=== PATIENT | female | born 1930 | race Caucasian/White ===

== ENCOUNTER 2018-07-04 21:58 | Inpatient (IN) | payer OTHER ==
--- NOTE | 2018-07-04 21:59 | PDOC ---
History of Present Illness - General Stated Complaint: ABNORMAL LABS Time Seen by Provider: 07/04/18 21:59 - History of Present Illness Initial Comments: 87 year old female with PMH of HTn, HLD, IDDM, and afib (on Xarelto) presenting from [facility] because of a urine reported to have aMDR bacteria in it. She denies any symptoms except for her chronic arthritis and specifically denies urinary symptoms, nausea, vomiting, diarrhea, cough, chest pain, or other symptoms. Of note she was in [facility] one week prior for a few weeks where she was admitted for a gallstone pancreatitis and was intubated x2. She eventually recovered after intensive care treatment. She currently is doing well at rehab. 07/04/18 22:26 Past History - Past Medical History Allergies/Adverse Reactions: Allergies Allergy/AdvReac Type Severity Reaction Status Date / Time No Known Allergies Allergy Verified 07/04/18 23:50 Review of Systems - Review of Systems Constitutional: No: Chills, Diaphoresis, Fever HEENTM: No: Eye Pain, Blurred Vision, Tearing Respiratory: No: Cough, Orthopnea, Shortness of Breath Cardiac (ROS): No: Chest Pain, Edema, Irregular Heart Rate ABD/GI: No: Constipated, Diarrhea, Nausea, Vomiting : No: Burning, Dysuria, Discharge Musculoskeletal: Yes: Back Pain, Joint Pain, Joint Stiffness. No: Gout Integumentary: No: Bruising, Change in Color, Erythema, Flushing Neurological: No: Headache, Numbness, Paresthesia Hematologic/Lymphatic: No: Anemia, Blood Clots *Physical Exam - Physical Exam General Appearance: Yes: Nourished, Appropriately Dressed. No: Apparent Distress HEENT: positive: EOMI, MINERVA, Normal ENT Inspection, Normal Voice Neck: positive: Trachea midline, Normal Thyroid, Supple. negative: Tender, Rigid Respiratory/Chest: positive: Lungs Clear, Normal Breath Sounds. negative: Chest Tender, Respiratory Distress, Accessory Muscle Use Cardiovascular: positive: Irregularly Irregular. negative: Tachycardia Gastrointestinal/Abdominal: positive: Normal Bowel Sounds, Flat, Soft. negative : Tender Lymphatic: negative: Adenopathy, Tenderness Musculoskeletal: positive: Normal Inspection. negative: Decreased Range of Motion Extremity: positive: Normal Capillary Refill, Tender (right hip with stiffness and sliht limitation with movement of hte right hip and knee). negative: Normal Inspection, Normal Range of Motion Integumentary: positive: Normal Color, Dry, Warm Neurologic: positive: Fully Oriented, Alert, Normal Mood/Affect, Normal Response , Motor Strength 07/21 ED Treatment Course - LABORATORY CBC & Chemistry Diagram: 07/04/18 22:45 07/04/18 22:45 Medical Decision Making - Medical Decision Making 87 year old female from [facility] presenting with MDR Klebsiella in her urine. Completely asymptomatic but given comorbidities, the admitting service would like to bring her in for cautious IV abx management. Called in by Dr. Aguirre for admission. UA, UC, Blood cultures al pending and other labs WNL. Given Amikacin and admitted to medicine service. 07/04/18 23:52 *DC/Admit/Observation/Transfer Diagnosis at time of Disposition: UTI due to Klebsiella species - Discharge Dispostion Decision to Admit order: Yes - Referrals - Patient Instructions - Post Discharge Activity
[2018-07-04 22:14] VITALS: BMI 29.6
[2018-07-04 22:50] LABS: BASO % 0.9 % (0-2.0); EOS % 4.6 % (0-4.5); HEMATOCRIT 34.2 % (32.4-45.2); HEMOGLOBIN 11.5 GM/dL (10.7-15.3); LYMPH % 35.4 % (8-40); MCH 31.4 pg (25.7-33.7); MCHC 33.7 g/dl (32.0-36.0); MEAN CELL VOLUME 93.3 fl (80-96); MEAN PLT VOLUME 8.5 fl (7.5-11.1); MONO % 9.6 % (3.8-10.2); NEUT % 49.5 % (42.8-82.8); PLATELET COUNT 169 K/MM3 (134-434); RBC 3.66 M/mm3 (3.60-5.2); RDW 15.9 % (11.6-15.6); WHITE BLOOD COUNT 4.9 K/mm3 (4.0-10.0)
--- NOTE | 2018-07-04 23:18 | PDOC ---
Documentation entered by Shelly Romero SCRIBE, acting as scribe for Shani Damon DO. Shani Damon DO: This documentation has been prepared by the Heather wolfe Daisy, SCRIBE, under my direction and personally reviewed by me in its entirety. I confirm that the documentation accurately reflects all work, treatment, procedures, and medical decision making performed by me. Attending Attestation - Resident Resident Name: Elvira Macdonaldkieransimran - ED Attending Attestation I have performed the following: I have examined & evaluated the patient, The case was reviewed & discussed with the resident, I agree w/resident's findings & plan - HPI HPI: 07/04/18 22:46 The patient is a 87 year old female who presents to the emergency department sent in from [facility] for IV antibiotics for multidrug-resistant (MDR ) Klebsiella pneumonia in the urine. Patient was recently discharged from [facility] by the end of May for gallstone pancreatitis. She is currently asymptomatic. She is DNR/DNI. The patient denies chest pain, shortness of breath, headache and dizziness. Denies fever, chills, nausea, vomit, diarrhea and constipation. Denies dysuria, frequency, urgency and hematuria. Allergies: Penicillins Past surgical history: None reported. Social history: No reported alcohol, drug or cigarette use. - Physicial Exam PE: 07/04/18 22:57 ADULT PHYSICAL EXAM Constitutional: Awake, alert, oriented. No acute distress. Cardiovascular: Regular rate. (+) Irregular rhythm. S1, S2 regular. Distal pulses are 2+ and symmetric. Pulmonary/Chest: No evidence of respiratory distress. Clear to auscultation bilaterally No wheezing, rales or rhonchi. Abdominal: Soft and non-distended. There is no tenderness. No rebound, guarding or rigidity. No organomegaly. No palpable masses. Good bowel sounds. Musculoskeletal: (+) 1+ pitting edema to the lower extremities bilaterally. (+) chronic right leg pain 2/2 arthritis. Full range of motion in all extremities. Nocalf tenderness. Radial/pedal pulses are intact and 2+ bilaterally Skin: Skin is warm and dry. No petechiae. No purpura. Neurological: Alert and oriented to person, place, and time. Cranial nerves II -XII are grossly intact. Normal speech. Strength is grossly symmetric. No sensory deficits. Psychiatric: Good eye contact. Normal interaction, affect and behavior. - Medical Decision Making 07/04/18 23:15 a/p: 87yo female sent by Dr. Aguirre and Dr. Gordon for iv abx for mdr kleb pneumo uti -pt with pcn allergy -in [facility] for gallstone pancreatitis in May, d/c to [facility] after the admission for rehab -pt denies all symptoms -denies n/v/d. no abd pain. no dysuria -no fevers -no cp/sob -urine culture from [facility] kleb pneumo, discussed with Dr. Aguirre who requests 1 dose of amikacin in the ED -repeat ua and culture -pt is nontoxic in appearance 07/04/18 23:28 cxr shows cardiomegaly no elevated wbc 07/04/18 23:50 labs reviewed case discussed with Dr. Monroy who accepts pt to service for iv abx Heart Score/ECG Review - ECG Intrepretation Comment:: 07/04/18 23:23 afib at 87, nl axis, t wave inveresions v2-[address]ressions v4-5, no prior ekg, abnl ekg
[2018-07-04 23:31] LABS: ALBUMIN 3.1 g/dl (3.4-5.0); ALK PHOS 167 U/L (45-117); ANION GAP 7 MMOL/L (8-16); BILIRUBIN,TOTAL 0.6 mg/dL (0.2-1); BLOOD UREA NITROGEN 18 mg/dL (7-18); CALCIUM 8.5 mg/dL (8.5-10.1); CHLORIDE 106 mmol/L (98-107); CO2 25 mmol/L (21-32); CREATININE 1.2 mg/dL (0.55-1.3); GLUCOSE,RANDOM 152 mg/dL (74-106); POTASSIUM 4.3 mmol/L (3.5-5.1); SGOT/AST 24 U/L (15-37); SGPT/ALT 21 U/L (13-61); SODIUM 138 mmol/L (136-145); TOT PROT 6.4 g/dl (6.4-8.2)
[2018-07-04] MEDS ORDERED: SODIUM CHLORIDE IVPB ONE (23:45)
[2018-07-04] MEDS ORDERED: AMIKACIN SO4 IVPB ONE (23:45)
--- NOTE | 2018-07-05 | PN ---
Teaching Attending Note Name of Resident: Fredy Sosa ATTENDING PHYSICIAN STATEMENT I saw and evaluated the patient. I reviewed the resident's note and discussed the case with the resident. I agree with the resident's findings and plan as documented. SUBJECTIVE: Seen and examined; please refer to resident note for further historical information. Sent in from [facility] for MDR K. Pneumo in her urine. Patient of Dr. Aguirre who requested a dose of amikacin which will be given in ER ; patient in PNC allergic. She is afebrile and hemodynamically stable. She is at [facility] due to an episode of gallstone pancreatitis. 10 sys ROS done and negative aside from HPI PMH, PSH, FH, SH reviewed Med rec pending OBJECTIVE: VS, labs, imaging reviewed NAD, AAO, resting comfortably in bed NC AT EOMI PERRLA RRR s1/2 no mgr Lungs CTAB, w/ sym exp NT ND +BS Normal mood, appropriate behavior Labs/micro/paperwork from [facility] reviewed ASSESSMENT AND PLAN: Patient presents at the behest of their OP physician for MDR K. pneumo in her urine; she is stable. 1) MDR K. pneumo UTI -Given amikacin in ER per ID; defer further abx to their service. Appreciate expert opinion -Consult Dr. Aguirre. -Monitor CBC. Check ESR, CRP. *HTN, HLD, IDDM, Afib on Eliquis, recently hospitalized at [facility] for gallstone pancreatitis requiring intubation -Continue home meds with no changes; nonacute presentation.
--- NOTE | 2018-07-05 00:53 | HP ---
CHIEF COMPLAINT: urinary frequency PCP: Dr. Gordon HISTORY OF PRESENT ILLNESS: Patient is an 87 y/o F w/ PMHx HTN, HLD, IDDM, Afib on Eliquis, recently hospitalized at [facility] for gallstone pancreatitis requiring intubation x 2 and ICU admission, since recovered and discharged to [facility], c/o urinary frequency x 1-2 days. Outpt UCx grew MDR K pneumo and Enterobacter > 100k CFU, susceptible to amikacin. C/S results are available in paper chart. Otherwise patient is entirely free of complaint. Dr. Aguirre was consulted by ED and recommended admission and amikacin therapy. Labs and imaging otherwise unremarkable. Recent Travel: PAST MEDICAL HISTORY: As per [facility] PAST SURGICAL HISTORY: Social History: Smoking: Alcohol: Drugs: Family History: Allergies Penicillins Allergy (Verified 07/04/18 23:56) HOME MEDICATIONS: REVIEW OF SYSTEMS As per [facility] PHYSICAL EXAMINATION Vital Signs - 24 hr 07/04/18 22:12 Temperature 97.6 F Pulse Rate 75 Respiratory 18 Rate Blood Pressure 159/61 O2 Sat by Pulse 99 Oximetry (%) GENERAL: A&Ox3, NAD HEENT: NC/AT, EOMI, PERRLA, MMM, anicteric NECK: Normal range of motion, supple without lymphadenopathy, JVD, or masses. LUNGS: Breath sounds equal, clear to auscultation bilaterally. No wheezes, and no crackles. No accessory muscle use. HEART: Regular rate and rhythm, normal S1 and S2 without murmur, rub or gallop. ABDOMEN: Soft, nontender, not distended, normoactive bowel sounds, no guarding, no rebound, no masses. No hepatomegaly or splenomegaly. MUSCULOSKELETAL: Normal range of motion at all joints. No bony deformities or tenderness. No CVA tenderness. UPPER EXTREMITIES: 2+ pulses, warm, well-perfused. No cyanosis. No clubbing. No peripheral edema. LOWER EXTREMITIES: 2+ pulses, warm, well-perfused. No calf tenderness. No peripheral edema. 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 LE b/l weak d/t chronic arthritis, no focal signs. PSYCHIATRIC: Cooperative. Good eye contact. Appropriate mood and affect. SKIN: Warm, dry, normal turgor, no rashes or lesions noted, normal capillary refill. Laboratory Results - last 24 hr 07/04/18 07/04/18 22:45 22:45 WBC 4.9 RBC 3.66 Hgb 11.5 Hct 34.2 MCV 93.3 MCH 31.4 MCHC 33.7 RDW 15.9 H Plt Count 169 MPV 8.5 Absolute Neuts (auto) 2.4 Neutrophils % 49.5 Lymphocytes % 35.4 Monocytes % 9.6 Eosinophils % 4.6 H Basophils % 0.9 Nucleated RBC % 0 Sodium 138 Potassium 4.3 Chloride 106 Carbon Dioxide 25 Anion Gap 7 L BUN 18 Creatinine 1.2 Creat Clearance w eGFR 42.50 Random Glucose 152 H Calcium 8.5 Total Bilirubin 0.6 AST 24 ALT 21 Alkaline Phosphatase 167 H Total Protein 6.4 Albumin 3.1 L ASSESSMENT/PLAN: 87 y/o F w/ PMHx HTN, HLD, IDDM, Afib on Eliquis, recently hospitalized at [facility] for gallstone pancreatitis requiring intubation x 2 and ICU admission , since recovered and discharged to [facility], c/o urinary frequency x 1- 2 days, growing polymicrobial MDR UTI. #A: -polymicrobial MDR UTI -chronic issues as per above #P: -ID consulted, Dr Aguirre following -Amikacin Tx -restarted home Eliquis, ASA, Toprol, Lipitor, Lasix, Lisinopril -BGM, SSI ACHS -no IVF -monitor BMP, Mg, Phos -diabetic diet -Eliquis for DVT PPx -full code -admit to med/surg Visit type - Emergency Visit Emergency Visit: Yes ED Registration Date: 07/04/18 Care time: The patient presented to the Emergency Department on the above date and was hospitalized for further evaluation of their emergent condition. - New Patient This patient is new to me today: Yes Date on this admission: 07/05/18 - Critical Care Critical Care patient: No
[2018-07-05 01:37] LABS: EPI CELLS 1.8 /HPF (0-5/HPF); PH,URINE 5.5 (5.0-8.0); URINE APPEARANCE CLEAR; URINE BACTERIA 26.1 /hpf (NEGATIVE); URINE BILIRUBIN NEGATIVE (NEGATIVE); URINE CASTS 4 /lpf (0-8); URINE COLOR YELLOW; URINE GLUCOSE (UA) NEGATIVE (NEGATIVE); URINE KETONE NEGATIVE (NEGATIVE); URINE LEUK ESTERASE NEGATIVE (NEGATIVE); URINE NITRITE NEGATIVE (NEGATIVE); URINE PROTEIN NEGATIVE (NEGATIVE); URINE RBC 1 /hpf (0-4); URINE WBC 1 /hpf (0-5)
[2018-07-05 06:16] LABS: BASO % 0.7 % (0-2.0); EOS % 4.8 % (0-4.5); HEMATOCRIT 31.4 % (32.4-45.2); HEMOGLOBIN 10.5 GM/dL (10.7-15.3); LYMPH % 39.2 % (8-40); MCHC 33.3 g/dl (32.0-36.0); MEAN CELL VOLUME 92.9 fl (80-96); MEAN PLT VOLUME 9.1 fl (7.5-11.1); MONO % 9.8 % (3.8-10.2); NEUT % 45.5 % (42.8-82.8); PLATELET COUNT 144 K/MM3 (134-434); RBC 3.38 M/mm3 (3.60-5.2); RDW 16.2 % (11.6-15.6); WHITE BLOOD COUNT 4.3 K/mm3 (4.0-10.0)
[2018-07-05 07:54] LABS: ANION GAP 8 MMOL/L (8-16); BLOOD UREA NITROGEN 17 mg/dL (7-18); CALCIUM 8.1 mg/dL (8.5-10.1); CHLORIDE 108 mmol/L (98-107); CO2 24 mmol/L (21-32); GLUCOSE,RANDOM 127 mg/dL (74-106); MAGNESIUM 1.5 mg/dL (1.8-2.4); PHOSPHOROUS 3.3 mg/dL (2.5-4.9); POTASSIUM 3.8 mmol/L (3.5-5.1); SODIUM 140 mmol/L (136-145)
[2018-07-05] MEDS: INSULIN SLIDING SCALE (NOVOLOG) 1 VIAL SQ SCH ×4 (08:32→21:21)
--- NOTE | 2018-07-05 09:25 | PN ---
Progress Note, Physician History of Present Illness: 87 y/o F w/ PMHx HTN, HLD, IDDM, Afib on Eliquis, recently hospitalized at [facility] for gallstone pancreatitis requiring intubation x 2 and ICU admission , since recovered and discharged to [facility], c/o urinary frequency x 1- 2 days. Outpt UCx grew MDR K pneumo and Enterobacter > 100k CFU, susceptible to amikacin. C/S results are available in paper chart. - Current Medication List Current Medications: Active Medications Apixaban (Eliquis -) 5 mg PO BID [facility] Aspirin (Ecotrin -) 81 mg PO DAILY [facility] Atorvastatin Calcium (Lipitor -) 10 mg PO HS [facility] Furosemide (Lasix -) 40 mg PO DAILY [facility] Insulin Aspart (Novolog Vial Sliding Scale -) 1 vial SQ ACHS [facility]; Protocol Last Admin: 07/05/18 08:32 Dose: Not Given Lisinopril (Prinivil) 10 mg PO DAILY [facility] Metoprolol Succinate (Toprol Xl -) 25 mg PO DAILY [facility] Polyethylene Glycol (Miralax (For Daily Use) -) 17 gm PO DAILY [facility] - Objective Vital Signs: Vital Signs Temperature 97.7 F 07/05/18 05:22 Pulse Rate 87 07/05/18 05:22 Respiratory Rate 18 07/05/18 05:22 Blood Pressure 135/62 07/05/18 05:22 O2 Sat by Pulse Oximetry (%) 100 07/05/18 04:52 GENERAL: A&Ox3, NAD HEENT: NC/AT, EOMI, PERRLA, MMM, anicteric NECK: Normal range of motion, supple without lymphadenopathy, JVD, or masses. LUNGS: Breath sounds equal, clear to auscultation bilaterally. No wheezes, and no crackles. No accessory muscle use. HEART: Regular rate and rhythm, normal S1 and S2 without murmur, rub or gallop. ABDOMEN: Soft, nontender, not distended, normoactive bowel sounds, no guarding, no rebound, no masses. No hepatomegaly or splenomegaly. MUSCULOSKELETAL: Normal range of motion at all joints. No bony deformities or tenderness. No CVA tenderness. UPPER EXTREMITIES: 2+ pulses, warm, well-perfused. No cyanosis. No clubbing. No peripheral edema. LOWER EXTREMITIES: 2+ pulses, warm, well-perfused. No calf tenderness. No peripheral edema. 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 LE b/l weak d/t chronic arthritis, no focal signs. PSYCHIATRIC: Cooperative. Good eye contact. Appropriate mood and affect. SKIN: Warm, dry, normal turgor, no rashes or lesions noted, normal capillary refill. Labs: CBC, BMP 07/05/18 05:30 07/05/18 05:30 Problem List - Problems (1) UTI (urinary tract infection) Assessment/Plan: Grew ESBL KP and Enterobactercae Colace sensitive to Amikacin Rpt Culture are in progress cont IV Amikacin as per ID F/U BMP daily Code(s): N39.0 - URINARY TRACT INFECTION, SITE NOT SPECIFIED (2) Afib Assessment/Plan: Rtae controlled con Apaxiban and metoprolol Code(s): I48.91 - UNSPECIFIED ATRIAL FIBRILLATION (3) T2DM (type 2 diabetes mellitus) Assessment/Plan: Cont Correction dose insulin diabetic Diet Code(s): E11.9 - TYPE 2 DIABETES MELLITUS WITHOUT COMPLICATIONS (4) HTN (hypertension) Assessment/Plan: Well controlled on current meds cont Lisinopril and Metoprolol Code(s): I10 - ESSENTIAL (PRIMARY) HYPERTENSION (5) Right calf pain Assessment/Plan: Patient is on full dose AC unlikely DVT will add Tylenol for pain. Code(s): M79.661 - PAIN IN RIGHT LOWER LEG
[2018-07-05] MEDS: FUROSEMIDE 40 MG TABLET (FP) PO SCH (10:11)
[2018-07-05] MEDS: LISINOPRIL 10 MG TABLET (FP) PO SCH (10:11)
[2018-07-05] MEDS: POLYETHYLENE GLYCOL 3350 119 GM BTL PO SCH (10:12)
[2018-07-05] MEDS: ASPIRIN COATED 81 MG TABLET.EC PO SCH (10:12)
[2018-07-05] MEDS: metoPROLOL SUCCINATE 25 MG TAB.SR.24H (FP) PO SCH (10:12)
[2018-07-05] MEDS: APIXABAN 5 MG TABLET PO SCH ×2 (10:12→21:05)
--- NOTE | 2018-07-05 10:38 | EKG ---
Test Reason : Blood Pressure : / mmHG Vent. Rate : 087 BPM Atrial Rate : 073 BPM P-R Int : 000 ms QRS Dur : 082 ms QT Int : 388 ms P-R-T Axes : 000 043 130 degrees QTc Int : 466 ms ATRIAL FIBRILLATION ABNORMAL ECG NO PREVIOUS ECGS AVAILABLE Confirmed by CINTHIA ERNST MD ([id number]) on 07/05/2018 10:38:08 AM Referred By: Confirmed By:CINTHIA ERNST MD
--- NOTE | 2018-07-05 11:59 | CON.ID ---
Consult Consult Specialty:: infectious diseases Referred by:: Dr hyman Reason for Consultation:: multi drug resistant uti - Past Medical History ...: No - Alcohol/Substance Use Hx Alcohol Use: No - Smoking History Smoking history: Never smoked Have you smoked in the past 12 months: No Home Medications - Allergies Allergies/Adverse Reactions: Allergies Allergy/AdvReac Type Severity Reaction Status Date / Time Penicillins Allergy Verified 07/04/18 23:56 Physical Exam Vital Signs: Vital Signs Temperature 98.0 F 07/05/18 10:00 Pulse Rate 82 07/05/18 10:00 Respiratory Rate 18 07/05/18 10:00 Blood Pressure 155/81 07/05/18 10:00 O2 Sat by Pulse Oximetry (%) 100 07/05/18 04:52 Labs: CBC, BMP 07/05/18 05:30 07/05/18 05:30
[2018-07-05] MEDS: ACETAMINOPHEN 325 MG TABLET (FP) PO PRN (14:57)
[2018-07-05] MEDS ORDERED: MAGNESIUM SULF 50% (8.12 MEQ/2 ML-1 GM VIAL) IVPB ONE (15:15)
[2018-07-05] MEDS ORDERED: AMIKACIN SULFATE IVPB ONE (20:00)
[2018-07-05] MEDS ORDERED: SODIUM CHLORIDE IVPB ONE (20:00)
[2018-07-05] MEDS: ATORVASTATIN CA 10 MG TABLET (FP) PO SCH (21:05)
[2018-07-06] MEDS: INSULIN SLIDING SCALE (NOVOLOG) 1 VIAL SQ SCH ×4 (06:05→21:14)
[2018-07-06 07:54] LABS: EOS % 4.7 % (0-4.5); HEMATOCRIT 33.7 % (32.4-45.2); HEMOGLOBIN 11.3 GM/dL (10.7-15.3); LYMPH % 43.5 % (8-40); MCH 31.1 pg (25.7-33.7); MCHC 33.6 g/dl (32.0-36.0); MEAN CELL VOLUME 92.4 fl (80-96); MONO % 8.2 % (3.8-10.2); NEUT % 42.6 % (42.8-82.8); PLATELET COUNT 165 K/MM3 (134-434); RBC 3.65 M/mm3 (3.60-5.2); WHITE BLOOD COUNT 4.6 K/mm3 (4.0-10.0)
--- NOTE | 2018-07-06 08:03 | PN ---
Progress Note, Physician Chief Complaint: patient is doing well she has no complaints, she stated that she is doing well, she slept without any issues, she denied any fever or chills, she denied any chest pain or discomfort. - Current Medication List Current Medications: Active Medications Acetaminophen (Tylenol -) 650 mg PO Q6H PRN PRN Reason: PAIN Last Admin: 07/05/18 14:57 Dose: 650 mg Apixaban (Eliquis -) 5 mg PO BID [facility] Last Admin: 07/05/18 21:05 Dose: 5 mg Aspirin (Ecotrin -) 81 mg PO DAILY [facility] Last Admin: 07/05/18 10:12 Dose: 81 mg Atorvastatin Calcium (Lipitor -) 10 mg PO HS [facility] Last Admin: 07/05/18 21:05 Dose: 10 mg Furosemide (Lasix -) 40 mg PO DAILY [facility] Last Admin: 07/05/18 10:11 Dose: 40 mg Insulin Aspart (Novolog Vial Sliding Scale -) 1 vial SQ [facility]; Protocol Last Admin: 07/06/18 06:05 Dose: Not Given Lisinopril (Prinivil) 10 mg PO DAILY [facility] Last Admin: 07/05/18 10:11 Dose: 10 mg Metoprolol Succinate (Toprol Xl -) 25 mg PO DAILY [facility] Last Admin: 07/05/18 10:12 Dose: 25 mg Polyethylene Glycol (Miralax (For Daily Use) -) 17 gm PO DAILY [facility] Last Admin: 07/05/18 10:12 Dose: 17 gm - Objective Vital Signs: Vital Signs Temperature 98.1 F 07/06/18 06:01 Pulse Rate 84 07/06/18 06:01 Respiratory Rate 20 07/06/18 06:01 Blood Pressure 107/50 L 07/06/18 06:01 O2 Sat by Pulse Oximetry (%) 100 07/05/18 21:00 Constitutional: Yes: Well Nourished, No Distress, Calm Eyes: Yes: WNL, Conjunctiva Clear, EOM Intact HENT: Yes: WNL, Atraumatic, Normocephalic Neck: Yes: Supple, Trachea Midline Cardiovascular: Yes: WNL, Regular Rate and Rhythm, S1, S2 Respiratory: Yes: WNL, Regular, CTA Bilaterally Gastrointestinal: Yes: WNL, Normal Bowel Sounds, Soft ...Rectal Exam: Yes: Deferred Musculoskeletal: Yes: WNL Extremities: Yes: WNL Edema: No Peripheral Pulses WNL: Yes Integumentary: Yes: WNL Neurological: Yes: WNL, Alert, Oriented ...Motor Strength: WNL Psychiatric: Yes: WNL, Alert, Oriented Labs: CBC, BMP 07/06/18 06:15 Problem List - Problems (1) Afib Code(s): I48.91 - UNSPECIFIED ATRIAL FIBRILLATION (2) HTN (hypertension) Code(s): I10 - ESSENTIAL (PRIMARY) HYPERTENSION (3) Right calf pain Code(s): M79.661 - PAIN IN RIGHT LOWER LEG (4) T2DM (type 2 diabetes mellitus) Code(s): E11.9 - TYPE 2 DIABETES MELLITUS WITHOUT COMPLICATIONS (5) UTI (urinary tract infection) Code(s): N39.0 - URINARY TRACT INFECTION, SITE NOT SPECIFIED Assessment/Plan 87 y/o F w/ PMHx HTN, HLD, IDDM, Afib on Eliquis, recently hospitalized at [facility] for gallstone pancreatitis requiring intubation x 2 and ICU admission , since recovered and discharged to [facility], c/o urinary frequency x 1- 2 days, growing polymicrobial MDR UTI. 1) MDR K. pneumo UTI -Given amikacin in ER per ID; defer further abx to their service. Appreciate expert opinion -Consult Dr. Aguirre. -Monitor CBC. Check ESR, CRP. Atrial fibrillation: - c/w rate control with metoprolol 25mg - c/w apixiban HTN: - c/w home medication DL: - c/w moderate intensity of atorvastatin
[2018-07-06 08:22] LABS: ANION GAP 8 MMOL/L (8-16); BLOOD UREA NITROGEN 13 mg/dL (7-18); CALCIUM 8.4 mg/dL (8.5-10.1); CHLORIDE 106 mmol/L (98-107); CO2 26 mmol/L (21-32); CREATININE 0.9 mg/dL (0.55-1.3); GLUCOSE,RANDOM 97 mg/dL (74-106); MAGNESIUM 1.9 mg/dL (1.8-2.4); POTASSIUM 3.7 mmol/L (3.5-5.1); SODIUM 139 mmol/L (136-145)
[2018-07-06] MEDS: APIXABAN 5 MG TABLET PO SCH ×2 (09:58→21:14)
[2018-07-06] MEDS: metoPROLOL SUCCINATE 25 MG TAB.SR.24H (FP) PO SCH (09:59)
[2018-07-06] MEDS: FUROSEMIDE 40 MG TABLET (FP) PO SCH (09:59)
[2018-07-06] MEDS: ASPIRIN COATED 81 MG TABLET.EC PO SCH (09:59)
[2018-07-06] MEDS: LISINOPRIL 10 MG TABLET (FP) PO SCH (09:59)
[2018-07-06] MEDS: POLYETHYLENE GLYCOL 3350 119 GM BTL PO SCH (10:00)
--- NOTE | 2018-07-06 11:52 | PN ---
Progress Note, Physician History of Present Illness: patient doing well says her suprapubic pain has improved no dysuria - Current Medication List Current Medications: Active Medications Acetaminophen (Tylenol -) 650 mg PO Q6H PRN PRN Reason: PAIN Last Admin: 07/05/18 14:57 Dose: 650 mg Apixaban (Eliquis -) 5 mg PO BID [facility] Last Admin: 07/06/18 09:58 Dose: 5 mg Aspirin (Ecotrin -) 81 mg PO DAILY [facility] Last Admin: 07/06/18 09:59 Dose: 81 mg Atorvastatin Calcium (Lipitor -) 10 mg PO HS [facility] Last Admin: 07/05/18 21:05 Dose: 10 mg Furosemide (Lasix -) 40 mg PO DAILY [facility] Last Admin: 07/06/18 09:59 Dose: 40 mg Insulin Aspart (Novolog Vial Sliding Scale -) 1 vial SQ [facility]; Protocol Last Admin: 07/06/18 11:35 Dose: Not Given Lisinopril (Prinivil) 10 mg PO DAILY [facility] Last Admin: 07/06/18 09:59 Dose: 10 mg Metoprolol Succinate (Toprol Xl -) 25 mg PO DAILY [facility] Last Admin: 07/06/18 09:59 Dose: 25 mg Polyethylene Glycol (Miralax (For Daily Use) -) 17 gm PO DAILY [facility] Last Admin: 07/06/18 10:00 Dose: Not Given - Objective Vital Signs: Vital Signs Temperature 97.4 F L 07/06/18 10:06 Pulse Rate 86 07/06/18 10:06 Respiratory Rate 18 07/06/18 10:06 Blood Pressure 135/72 07/06/18 10:06 O2 Sat by Pulse Oximetry (%) 99 07/06/18 10:09 Constitutional: Yes: No Distress, Calm Cardiovascular: Yes: S1, S2 Respiratory: Yes: Regular, CTA Bilaterally Gastrointestinal: Yes: Normal Bowel Sounds, Soft Musculoskeletal: Yes: WNL Extremities: Yes: WNL Neurological: Yes: Alert, Oriented Psychiatric: Yes: Alert, Oriented Labs: CBC, BMP 07/06/18 06:15 07/06/18 06:15 Assessment/Plan Problem List - Problems (1) Afib Code(s): I48.91 - UNSPECIFIED ATRIAL FIBRILLATION (2) HTN (hypertension) Code(s): I10 - ESSENTIAL (PRIMARY) HYPERTENSION (3) Right calf pain Code(s): M79.661 - PAIN IN RIGHT LOWER LEG (4) T2DM (type 2 diabetes mellitus) Code(s): E11.9 - TYPE 2 DIABETES MELLITUS WITHOUT COMPLICATIONS (5) UTI (urinary tract infection) Code(s): N39.0 - URINARY TRACT INFECTION, SITE NOT SPECIFIED plan awaiting for amikacin trough await for identification of the organism in the urine rest as per the team
[2018-07-06] MEDS: ATORVASTATIN CA 10 MG TABLET (FP) PO SCH (21:15)
[2018-07-07] MEDS: INSULIN SLIDING SCALE (NOVOLOG) 1 VIAL SQ SCH ×4 (06:08→21:47)
[2018-07-07 07:28] LABS: BASO % 0.9 % (0-2.0); EOS % 3.7 % (0-4.5); HEMATOCRIT 31.4 % (32.4-45.2); HEMOGLOBIN 10.7 GM/dL (10.7-15.3); LYMPH % 42.1 % (8-40); MCH 31.2 pg (25.7-33.7); MCHC 34.2 g/dl (32.0-36.0); MEAN CELL VOLUME 91.3 fl (80-96); MEAN PLT VOLUME 8.9 fl (7.5-11.1); MONO % 9.5 % (3.8-10.2); NEUT % 43.8 % (42.8-82.8); PLATELET COUNT 147 K/MM3 (134-434); RBC 3.43 M/mm3 (3.60-5.2); RDW 15.8 % (11.6-15.6); WHITE BLOOD COUNT 4.6 K/mm3 (4.0-10.0)
--- NOTE | 2018-07-07 07:30 | PN ---
Progress Note, Physician Chief Complaint: patient is doing well she has no complaints, she stated that she is doing well, she slept without any issues, she denied any fever or chills, she denied any chest pain or discomfort. - Current Medication List Current Medications: Active Medications Acetaminophen (Tylenol -) 650 mg PO Q6H PRN PRN Reason: PAIN Last Admin: 07/05/18 14:57 Dose: 650 mg Apixaban (Eliquis -) 5 mg PO BID [facility] Last Admin: 07/06/18 21:14 Dose: 5 mg Aspirin (Ecotrin -) 81 mg PO DAILY [facility] Last Admin: 07/06/18 09:59 Dose: 81 mg Atorvastatin Calcium (Lipitor -) 10 mg PO HS [facility] Last Admin: 07/06/18 21:15 Dose: 10 mg Furosemide (Lasix -) 40 mg PO DAILY [facility] Last Admin: 07/06/18 09:59 Dose: 40 mg Insulin Aspart (Novolog Vial Sliding Scale -) 1 vial SQ [facility]; Protocol Last Admin: 07/07/18 06:08 Dose: Not Given Lisinopril (Prinivil) 10 mg PO DAILY [facility] Last Admin: 07/06/18 09:59 Dose: 10 mg Metoprolol Succinate (Toprol Xl -) 25 mg PO DAILY [facility] Last Admin: 07/06/18 09:59 Dose: 25 mg Polyethylene Glycol (Miralax (For Daily Use) -) 17 gm PO DAILY [facility] Last Admin: 07/06/18 10:00 Dose: Not Given - Objective Vital Signs: Vital Signs Temperature 97.8 F 07/07/18 06:01 Pulse Rate 82 07/07/18 06:01 Respiratory Rate 16 07/07/18 06:01 Blood Pressure 124/62 07/07/18 06:01 O2 Sat by Pulse Oximetry (%) 99 07/06/18 10:09 Constitutional: Yes: Well Nourished, No Distress, Calm Eyes: Yes: WNL, Conjunctiva Clear, EOM Intact HENT: Yes: WNL, Atraumatic, Normocephalic Neck: Yes: WNL, Supple, Trachea Midline Cardiovascular: Yes: WNL, Regular Rate and Rhythm, S1, S2 Respiratory: Yes: WNL, Regular, CTA Bilaterally Gastrointestinal: Yes: WNL, Normal Bowel Sounds Musculoskeletal: Yes: WNL Extremities: Yes: WNL Integumentary: Yes: WNL Neurological: Yes: WNL, Alert, Oriented ...Motor Strength: WNL Psychiatric: Yes: WNL, Alert, Oriented Problem List - Problems (1) Afib Code(s): I48.91 - UNSPECIFIED ATRIAL FIBRILLATION (2) HTN (hypertension) Code(s): I10 - ESSENTIAL (PRIMARY) HYPERTENSION (3) Right calf pain Code(s): M79.661 - PAIN IN RIGHT LOWER LEG (4) T2DM (type 2 diabetes mellitus) Code(s): E11.9 - TYPE 2 DIABETES MELLITUS WITHOUT COMPLICATIONS (5) UTI (urinary tract infection) Code(s): N39.0 - URINARY TRACT INFECTION, SITE NOT SPECIFIED Assessment/Plan 87 y/o F w/ PMHx HTN, HLD, IDDM, Afib on Eliquis, recently hospitalized at [facility] for gallstone pancreatitis requiring intubation x 2 and ICU admission , since recovered and discharged to [facility], c/o urinary frequency x 1- 2 days, growing polymicrobial MDR UTI. 1) MDR K. pneumo UTI -Given amikacin in ER per ID; defer further abx to their service. Appreciate expert opinion -Consult Dr. Aguirre. -Monitor CBC. Check ESR, CRP. - HOLD THE AMIKACIN DOSE DUE TO ELEVATED TROUGH WILL REPEAT THE LEVEL AND DOSE NEEDED Atrial fibrillation: - c/w rate control with metoprolol 25mg - c/w apixiban HTN: - c/w home medication DL: - c/w moderate intensity of atorvastatin
[2018-07-07 08:03] LABS: ALBUMIN 2.6 g/dl (3.4-5.0); ALK PHOS 134 U/L (45-117); ANION GAP 7 MMOL/L (8-16); BILIRUBIN,TOTAL 0.7 mg/dL (0.2-1); BLOOD UREA NITROGEN 12 mg/dL (7-18); CALCIUM 8.1 mg/dL (8.5-10.1); CHLORIDE 107 mmol/L (98-107); CO2 26 mmol/L (21-32); GLUCOSE,RANDOM 110 mg/dL (74-106); POTASSIUM 3.5 mmol/L (3.5-5.1); SGOT/AST 20 U/L (15-37); SGPT/ALT 16 U/L (13-61); SODIUM 140 mmol/L (136-145); TOT PROT 5.4 g/dl (6.4-8.2)
[2018-07-07] MEDS: APIXABAN 5 MG TABLET PO SCH ×2 (10:32→21:47)
[2018-07-07] MEDS: LISINOPRIL 10 MG TABLET (FP) PO SCH (10:32)
[2018-07-07] MEDS: FUROSEMIDE 40 MG TABLET (FP) PO SCH (10:33)
[2018-07-07] MEDS: metoPROLOL SUCCINATE 25 MG TAB.SR.24H (FP) PO SCH (10:33)
[2018-07-07] MEDS: POLYETHYLENE GLYCOL 3350 119 GM BTL PO SCH (10:33)
[2018-07-07] MEDS: ASPIRIN COATED 81 MG TABLET.EC PO SCH (10:33)
[2018-07-07] MEDS ORDERED: PT OWN MED DRAWER 7, Y5N ONE (10:39)
--- NOTE | 2018-07-07 12:52 | PN ---
Progress Note, Physician - Current Medication List Current Medications: Active Medications Acetaminophen (Tylenol -) 650 mg PO Q6H PRN PRN Reason: PAIN Last Admin: 07/05/18 14:57 Dose: 650 mg Apixaban (Eliquis -) 5 mg PO BID [facility] Last Admin: 07/07/18 10:32 Dose: 5 mg Aspirin (Ecotrin -) 81 mg PO DAILY [facility] Last Admin: 07/07/18 10:33 Dose: 81 mg Atorvastatin Calcium (Lipitor -) 10 mg PO HS [facility] Last Admin: 07/06/18 21:15 Dose: 10 mg Furosemide (Lasix -) 40 mg PO DAILY [facility] Last Admin: 07/07/18 10:33 Dose: 40 mg Insulin Aspart (Novolog Vial Sliding Scale -) 1 vial SQ ACHS [facility]; Protocol Last Admin: 07/07/18 11:47 Dose: Not Given Lisinopril (Prinivil) 10 mg PO DAILY [facility] Last Admin: 07/07/18 10:32 Dose: 10 mg Metoprolol Succinate (Toprol Xl -) 25 mg PO DAILY [facility] Last Admin: 07/07/18 10:33 Dose: 25 mg Polyethylene Glycol (Miralax (For Daily Use) -) 17 gm PO DAILY [facility] Last Admin: 07/07/18 10:33 Dose: Not Given - Objective Vital Signs: Vital Signs Temperature 97.8 F 07/07/18 06:01 Pulse Rate 82 07/07/18 06:01 Respiratory Rate 16 07/07/18 06:01 Blood Pressure 124/62 07/07/18 06:01 O2 Sat by Pulse Oximetry (%) 99 07/06/18 10:09 Labs: CBC, BMP 07/07/18 06:10 07/07/18 06:10
[2018-07-07] MEDS: ACETAMINOPHEN 325 MG TABLET (FP) PO PRN (18:50)
[2018-07-07] MEDS: ATORVASTATIN CA 10 MG TABLET (FP) PO SCH (21:47)
[2018-07-08] MEDS: INSULIN SLIDING SCALE (NOVOLOG) 1 VIAL SQ SCH ×2 (06:13→11:34)
[2018-07-08 06:19] LABS: EOS % 3.5 % (0-4.5); HEMATOCRIT 30.7 % (32.4-45.2); HEMOGLOBIN 10.6 GM/dL (10.7-15.3); LYMPH % 46.3 % (8-40); MCH 31.4 pg (25.7-33.7); MCHC 34.4 g/dl (32.0-36.0); MEAN CELL VOLUME 91.2 fl (80-96); MEAN PLT VOLUME 8.8 fl (7.5-11.1); MONO % 9.8 % (3.8-10.2); NEUT % 39.4 % (42.8-82.8); PLATELET COUNT 140 K/MM3 (134-434); RBC 3.37 M/mm3 (3.60-5.2); RDW 15.4 % (11.6-15.6); WHITE BLOOD COUNT 4.8 K/mm3 (4.0-10.0)
[2018-07-08 06:44] LABS: ALBUMIN 2.5 g/dl (3.4-5.0); ALK PHOS 133 U/L (45-117); ANION GAP 8 MMOL/L (8-16); BILIRUBIN,TOTAL 0.6 mg/dL (0.2-1); BLOOD UREA NITROGEN 17 mg/dL (7-18); CALCIUM 8.1 mg/dL (8.5-10.1); CHLORIDE 106 mmol/L (98-107); CO2 25 mmol/L (21-32); GLUCOSE,RANDOM 110 mg/dL (74-106); POTASSIUM 3.3 mmol/L (3.5-5.1); SGOT/AST 21 U/L (15-37); SGPT/ALT 15 U/L (13-61); SODIUM 139 mmol/L (136-145); TOT PROT 5.3 g/dl (6.4-8.2)
--- NOTE | 2018-07-08 07:45 | PN ---
Progress Note, Physician Chief Complaint: No complaints remained afebrile History of Present Illness: 87 y/o F w/ PMHx HTN, HLD, IDDM, Afib on Eliquis, recently hospitalized at [facility] for gallstone pancreatitis requiring intubation x 2 and ICU admission , since recovered and discharged to [facility], c/o urinary frequency x 1- 2 days. Outpt UCx grew MDR K pneumo and Enterobacter > 100k CFU, susceptible to amikacin. C/S results are available in paper chart. - Current Medication List Current Medications: Active Medications Acetaminophen (Tylenol -) 650 mg PO Q6H PRN PRN Reason: PAIN Last Admin: 07/07/18 18:50 Dose: 650 mg Apixaban (Eliquis -) 5 mg PO BID [facility] Last Admin: 07/07/18 21:47 Dose: 5 mg Aspirin (Ecotrin -) 81 mg PO DAILY [facility] Last Admin: 07/07/18 10:33 Dose: 81 mg Atorvastatin Calcium (Lipitor -) 10 mg PO HS [facility] Last Admin: 07/07/18 21:47 Dose: 10 mg Furosemide (Lasix -) 40 mg PO DAILY [facility] Last Admin: 07/07/18 10:33 Dose: 40 mg Insulin Aspart (Novolog Vial Sliding Scale -) 1 vial SQ ACHS [facility]; Protocol Last Admin: 07/08/18 06:13 Dose: Not Given Lisinopril (Prinivil) 10 mg PO DAILY [facility] Last Admin: 07/07/18 10:32 Dose: 10 mg Metoprolol Succinate (Toprol Xl -) 25 mg PO DAILY [facility] Last Admin: 07/07/18 10:33 Dose: 25 mg Polyethylene Glycol (Miralax (For Daily Use) -) 17 gm PO DAILY [facility] Last Admin: 07/07/18 10:33 Dose: Not Given Potassium Chloride (K-Dur -) 40 meq PO DAILY [facility] - Objective Vital Signs: Vital Signs Temperature 97.9 F 07/08/18 06:00 Pulse Rate 84 07/08/18 06:00 Respiratory Rate 20 07/08/18 06:00 Blood Pressure 124/64 07/08/18 06:00 O2 Sat by Pulse Oximetry (%) 100 07/07/18 21:00 GENERAL: A&Ox3, NAD HEENT: NC/AT, EOMI, PERRLA, MMM, anicteric NECK: Normal range of motion, supple without lymphadenopathy, JVD, or masses. LUNGS: Breath sounds equal, clear to auscultation bilaterally. No wheezes, and no crackles. No accessory muscle use. HEART: Regular rate and rhythm, normal S1 and S2 without murmur, rub or gallop. ABDOMEN: Soft, nontender, not distended, normoactive bowel sounds, no guarding, no rebound, no masses. No hepatomegaly or splenomegaly. MUSCULOSKELETAL: Normal range of motion at all joints. No bony deformities or tenderness. No CVA tenderness. UPPER EXTREMITIES: 2+ pulses, warm, well-perfused. No cyanosis. No clubbing. No peripheral edema. LOWER EXTREMITIES: 2+ pulses, warm, well-perfused. No calf tenderness. No peripheral edema. 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 LE b/l weak d/t chronic arthritis, no focal signs. PSYCHIATRIC: Cooperative. Good eye contact. Appropriate mood and affect. SKIN: Warm, dry, normal turgor, no rashes or lesions noted, normal capillary refill. Labs: CBC, BMP 07/08/18 05:30 07/08/18 05:30 Problem List - Problems (1) UTI (urinary tract infection) Assessment/Plan: Grew ESBL KP and Enterobactercae Colace sensitive to Amikacin Rpt Culture are in progress cont IV Amikacin as per ID F/U BMP daily trough is 13.8 on 07/06/18 , culture grew Non inseminator GNB awaiting sensistivity, discussed with ID and lanb result will be available tomorrow can be DC home depending on Amikacin level if < 8 needs 1gm if > 8 no need for further abx. Code(s): N39.0 - URINARY TRACT INFECTION, SITE NOT SPECIFIED (2) Afib Assessment/Plan: Rtae controlled con Apaxiban and metoprolol Code(s): I48.91 - UNSPECIFIED ATRIAL FIBRILLATION (3) T2DM (type 2 diabetes mellitus) Assessment/Plan: Cont Correction dose insulin diabetic Diet Code(s): E11.9 - TYPE 2 DIABETES MELLITUS WITHOUT COMPLICATIONS (4) HTN (hypertension) Assessment/Plan: Well controlled on current meds cont Lisinopril and Metoprolol Code(s): I10 - ESSENTIAL (PRIMARY) HYPERTENSION (5) Right calf pain Assessment/Plan: Patient is on full dose AC unlikely DVT will add Tylenol for pain. Code(s): M79.661 - PAIN IN RIGHT LOWER LEG (6) Hypokalemia Assessment/Plan: K 3.2 Repleted F/U Mag level and BMP in am Code(s): E87.6 - HYPOKALEMIA
[2018-07-08 08:12] LABS: MAGNESIUM 1.6 mg/dL (1.8-2.4)
[2018-07-08] MEDS: FUROSEMIDE 40 MG TABLET (FP) PO SCH (09:29)
[2018-07-08] MEDS: metoPROLOL SUCCINATE 25 MG TAB.SR.24H (FP) PO SCH (09:29)
[2018-07-08] MEDS: LISINOPRIL 10 MG TABLET (FP) PO SCH (09:29)
[2018-07-08] MEDS: ASPIRIN COATED 81 MG TABLET.EC PO SCH (09:30)
[2018-07-08] MEDS: POLYETHYLENE GLYCOL 3350 119 GM BTL PO SCH (09:30)
[2018-07-08] MEDS: APIXABAN 5 MG TABLET PO SCH (09:30)
[2018-07-08] MEDS ORDERED: POTASSIUM CHLORIDE TABS 20 MEQ TABLET.ER (FP) PO SCH (10:00)
--- NOTE | 2018-07-08 13:19 | PN ---
Progress Note, Physician - Current Medication List Current Medications: Active Medications Acetaminophen (Tylenol -) 650 mg PO Q6H PRN PRN Reason: PAIN Last Admin: 07/07/18 18:50 Dose: 650 mg Apixaban (Eliquis -) 5 mg PO BID [facility] Last Admin: 07/08/18 09:30 Dose: 5 mg Aspirin (Ecotrin -) 81 mg PO DAILY [facility] Last Admin: 07/08/18 09:30 Dose: 81 mg Atorvastatin Calcium (Lipitor -) 10 mg PO HS [facility] Last Admin: 07/07/18 21:47 Dose: 10 mg Furosemide (Lasix -) 40 mg PO DAILY [facility] Last Admin: 07/08/18 09:29 Dose: 40 mg Insulin Aspart (Novolog Vial Sliding Scale -) 1 vial SQ ACHS [facility]; Protocol Last Admin: 07/08/18 11:34 Dose: 4 units Lisinopril (Prinivil) 10 mg PO DAILY [facility] Last Admin: 07/08/18 09:29 Dose: 10 mg Metoprolol Succinate (Toprol Xl -) 25 mg PO DAILY [facility] Last Admin: 07/08/18 09:29 Dose: 25 mg Polyethylene Glycol (Miralax (For Daily Use) -) 17 gm PO DAILY [facility] Last Admin: 07/08/18 09:30 Dose: 17 gm Potassium Chloride (K-Dur -) 40 meq PO DAILY [facility] Last Admin: 07/08/18 09:29 Dose: 40 meq - Objective Vital Signs: Vital Signs Temperature 97.9 F 07/08/18 06:00 Pulse Rate 84 07/08/18 06:00 Respiratory Rate 20 07/08/18 08:47 Blood Pressure 124/64 07/08/18 06:00 O2 Sat by Pulse Oximetry (%) 100 07/08/18 08:47 Labs: CBC, BMP 07/08/18 05:30 07/08/18 05:30
[2018-07-08 14:41] VITALS: BP 128/66; PULSE 80; TEMP 97.8
--- NOTE | 2018-07-08 16:05 | DS ---
Physical Examination Vital Signs: Vital Signs Temperature 97.8 F 07/08/18 14:39 Pulse Rate 80 07/08/18 14:39 Respiratory Rate 18 07/08/18 14:39 Blood Pressure 128/66 07/08/18 14:39 O2 Sat by Pulse Oximetry (%) 100 07/08/18 08:47 Constitutional: Yes: Well Nourished, No Distress Eyes: Yes: Conjunctiva Clear, EOM Intact HENT: Yes: Atraumatic, Normocephalic Neck: Yes: Supple, Trachea Midline Cardiovascular: Yes: Regular Rate and Rhythm, Tachycardia, Pulse Irregular, S1, S2 Respiratory: Yes: Regular, CTA Bilaterally Gastrointestinal: Yes: Normal Bowel Sounds, Soft Musculoskeletal: No: Back Pain, Joint Stiffness Edema: No Peripheral Pulses: Left Doralis Pedis: 1+, Right Dorsalis Pedis: 1+ Neurological: Yes: Alert, Oriented, Cran Nerves II-XII Intact ...Motor Strength: WNL, LLE, RUE, RLE Labs: CBC, BMP 07/08/18 05:30 07/08/18 05:30 Discharge Summary Reason For Visit: URINARY TRACT INFECTION Current Active Problems Afib (Acute) HTN (hypertension) (Acute) Hypokalemia (Acute) Right calf pain (Acute) T2DM (type 2 diabetes mellitus) (Acute) UTI (urinary tract infection) (Acute) Hospital Course: 87 y/o F w/ PMHx HTN, HLD, IDDM, Afib on Eliquis, recently hospitalized at [facility] for gallstone pancreatitis requiring intubation x 2 and ICU admission , since recovered and discharged to [facility], c/o urinary frequency x 1- 2 days. Outpt UCx grew MDR K pneumo and Enterobacter > 100k CFU, susceptible to amikacin. C/S results are available in paper chart. Patient is treated with meropeem, on arrival afebrile, normal TWBC, asymptomatic, UA normal, received amikacin, and amikacin level remained therapeutic for 5 days discussed with ID patient is breing Dc to [facility] for PT Condition: Stable - Instructions Disposition: LONG-TERM FACILITY - Home Medications Comprehensive Discharge Medication List: Ambulatory Orders Acetaminophen [Tylenol .Regular Strength -] 650 mg PO Q6H PRN tablet 07/08/18 Apixaban [Eliquis -] 5 mg PO BID tablet 07/08/18 Aspirin Coated [Ecotrin -] 81 mg PO DAILY tablet.ec 07/08/18 Atorvastatin Ca [Lipitor] 10 mg PO HS tablet 07/08/18 Furosemide [Lasix -] 40 mg PO DAILY tablet 07/08/18 Insulin Sliding Scale [Novolog Vial Sliding Scale -] 1 vial SQ ACHS units 07/08 Lisinopril [Prinivil] 10 mg PO DAILY tablet 07/08/18 Metoprolol Succinate [Toprol XL -] 25 mg PO DAILY tab.sr.24h 07/08/18 Polyethylene Glycol 3350 [Miralax 119 gm Btl -] 17 gm PO DAILY bottle 07/08/18
== END 2018-07-08 17:10 | DRG 690 ==
LOC: JER 21:58 → JERBED 22:02 → J5S 07-05 03:15 → J4S 07-05 03:59
PROVIDERS: ADMIT Internal Medicine Geriatric Medicine; ATTEND Internal Medicine
DX: N39.0 Urinary tract infection, site not specified (principal); B96.1 Klebsiella pneumoniae [K. pneumoniae] as the cause of diseases classified elsewhere; Z16.24 Resistance to multiple antibiotics; I10 Essential (primary) hypertension; E11.9 Type 2 diabetes mellitus without complications; Z79.4 Long term (current) use of insulin; I48.91 Unspecified atrial fibrillation; Z79.01 Long term (current) use of anticoagulants; E78.5 Hyperlipidemia, unspecified; Z66 Do not resuscitate; Z88.0 Allergy status to penicillin; M79.661 Pain in right lower leg
CPT/HCPCS: 36415; 71045-TC-FY; 80048; 80053; 80150; 81003; 82550; 82962; 83735; 84100; 84484; 85025; 85651; 86140; 87040; 87086; 87186; 93005; 93010; 97116-GP; 97161-GP; 99282-25